=== PATIENT | male | born 1985 | race Caucasian/White ===

== ENCOUNTER 2022-12-16 21:33 | Emergency (ER) | payer OTHER ==
[2022-12-16 22:06] VITALS: BP 139/70; PULSE 90; RESP 20; TEMP 98.8; BMI 25.8
[2022-12-17] MEDS ORDERED: ALBUTEROL SO4 2.5/IPRATROPIUM 0.5 INH SOL 3 ML VIAL.NEB. NEB ONE (00:03)
== END 2022-12-17 01:42 | disposition home or self-care (01) ==
LOC: FER 21:33
DX: T78.40XA Allergy, unspecified, initial encounter (principal); R06.02 Shortness of breath; L50.0 Allergic urticaria; L29.9 Pruritus, unspecified; R21 Rash and other nonspecific skin eruption
CPT/HCPCS: 99283-25